=== PATIENT | female | born 1990 | race Caucasian/White ===

== ENCOUNTER 2020-06-17 13:08 | Outpatient (REF) | payer OTHER, SELFPAY ==
--- NOTE | 2020-06-17 13:13 | US_ITS ---
EXAMINATION: PELVIC ULTRASOUND CLINICAL INFORMATION: Excessive and frequent menstruation with irregular cycle COMPARISON: Previous CT scans of the abdomen and pelvis most recent January 2020 and pelvic ultrasound December 2016 TECHNIQUE: Transabdominal and transvaginal pelvic ultrasound was performed. Transvaginal exam was performed for better visualization of the uterus and ovaries. FINDINGS: The uterus is anteverted and measures 7.6 x 3.9 x 4.8 cm in dimension. No focal uterine lesion is seen. Endometrial thickness measures 0.3 cm. The ovaries are normal-appearing. The right ovary measures 2.9 x 1.5 x 1.9 cm and the left ovary measures 3.1 x 2.4 x 1.7 cm. There is no fluid in the pelvis. US/US transvaginal IMPRESSION: Unremarkable exam.
--- NOTE | 2020-06-17 13:13 | US_ITS ---
EXAMINATION: PELVIC ULTRASOUND CLINICAL INFORMATION: Excessive and frequent menstruation with irregular cycle COMPARISON: Previous CT scans of the abdomen and pelvis most recent January 2020 and pelvic ultrasound December 2016 TECHNIQUE: Transabdominal and transvaginal pelvic ultrasound was performed. Transvaginal exam was performed for better visualization of the uterus and ovaries. FINDINGS: The uterus is anteverted and measures 7.6 x 3.9 x 4.8 cm in dimension. No focal uterine lesion is seen. Endometrial thickness measures 0.3 cm. The ovaries are normal-appearing. The right ovary measures 2.9 x 1.5 x 1.9 cm and the left ovary measures 3.1 x 2.4 x 1.7 cm. There is no fluid in the pelvis. US/US pelvic complete IMPRESSION: Unremarkable exam.
== END 2020-06-17 13:09 | disposition home or self-care (01) ==
LOC: HO.US 13:08
PROVIDERS: Absent Provider Advanced Practice Midwife; Visit Provider Obstetrics & Gynecology
DX: R92.1 Mammographic calcification found on diagnostic imaging of breast (principal)
CPT/HCPCS: 76830; 76856

== ENCOUNTER 2020-08-13 15:12 | Outpatient (REF) | payer OTHER, SELFPAY ==
[2020-08-14 09:41] LABS: BV Int Neg Control Negative (Negative); BV Int Pos Control Positive (Positive)
[2020-08-15 11:28] LABS: C. trachomatis RNA TMA NOT DETECTED (NOT DETECTED); N. gonorrhoeae RNA TMA DETECTED (NOT DETECTED)
== END 2020-08-13 15:13 | disposition home or self-care (01) ==
LOC: HO.LNP 15:12
PROVIDERS: PCP Family Medicine; Visit Provider Obstetrics & Gynecology
DX: N92.1 Excessive and frequent menstruation with irregular cycle (principal); Z11.3 Encounter for screening for infections with a predominantly sexual mode of transmission
CPT/HCPCS: 87480; 87491; 87510; 87591; 87660; 99212

== ENCOUNTER → 2020-09-11 09:40 | Outpatient (BNVA) | payer OTHER, SELFPAY | PROVIDERS: PCP Internal Medicine; Visit Provider Obstetrics & Gynecology | DX: Z64.0 Problems related to unwanted pregnancy (principal); G89.18 Other acute postprocedural pain | CPT/HCPCS: 81025; 99212 ==

== ENCOUNTER → 2020-09-16 10:49 | Outpatient (BNVA) | payer OTHER, SELFPAY | PROVIDERS: PCP Internal Medicine; Visit Provider Advanced Practice Midwife | DX: A54.9 Gonococcal infection, unspecified (principal) | CPT/HCPCS: 96372; J0696 ==

== ENCOUNTER 2020-09-25 07:14 | Day surgery (SDC) | payer OTHER, SELFPAY ==
[2020-09-25 08:02] VITALS: BP 115/60; PULSE 75; RESP 18; TEMP 36.7; O2SAT 96; BMI 43.8
[2020-09-25] MEDS: Lactated Ringers 1,000 ML 50 ML IV (08:30)
[2020-09-25] MEDS: Albuterol Sulfate (0.083%) 2.5 MG/3 ML VIAL.NEB INHALE (09:12)
[2020-09-25 09:13] VITALS: PULSE 85; O2SAT 95
--- NOTE | 2020-09-25 09:27 | HO.ANESPROP2 ---
[facility] Active Problems Active Problems: All Active Problems (Updated 09/16/20 @ 11:50 by Jose Toure MD) Gonorrhea (Acute) Family planning (Acute) Screen for STD (sexually transmitted disease) (Acute) Potential exposure to STD (Acute) control counseling (Acute) Menometrorrhagia (Acute) Past Medical History Medical History Asthma Bipolar 1 disorder History of frequent headaches Polysubstance abuse PTSD (post-traumatic stress disorder) Schizophrenia Surgical History Surgical History History of appendectomy Social History Social History Alcohol intake: never Smoking Status: Current every day smoker Substance Use Type: Marijuana Advance Directives: No Advance Directives Information Provided: Yes Gender identity: female Meds Allergies Allergy/AdvReac Type Severity Reaction Status Date / Time Fish Containing Products Allergy Severe SWELLING Verified 09/25/20 08:12 haloperidol [Haldol] Allergy Severe rash Verified 09/25/20 08:12 From HALDOL Allergy Severe RASH Uncoded 09/11/20 10:01 paper tape/tape adhesive Allergy Severe rash Uncoded 09/25/20 08:12 SEASONAL ALLERGIES Allergy Intermediate ITCHY EYES Uncoded 09/25/20 08:12 Active Medications: Current Medications Generic Name Dose Route Start Last Admin Trade Name Freq PRN Reason Stop Dose Admin Lactated Ringer's 1,000 mls @ 50 mls/hr 09/25/20 09:00 09/25/20 08:30 Lr IV 50 mls/hr .Q20H REBECCA Administration Home Medications Medication Instructions Recorded Confirmed Last Taken Type quetiapine 150 mg tablet,extended 150 mg PO BEDTIME 05/07/20 Unknown History release 24 hr tramadol 300 mg capsule 24 300 mg PO DAILY 05/07/20 Unknown History hr,extended release trazodone 150 mg tablet 150 mg PO BEDTIME PRN 05/07/20 Unknown History Exam Exam Date and Time: September 25, [id number] Height,Weight and Vital Signs: Height 5 ft 7 in Weight 127.006 kg Last Vital Signs Temp 98.0 F 09/25/20 08:02 Pulse 85 09/25/20 09:13 Resp 18 09/25/20 08:02 BP 115/60 09/25/20 08:02 Pulse Ox 96 09/25/20 08:02 Airway Mallampati Class: II TM Dist: >3cm Neck ROM: Full Assessment and Plan Assessment Anesthesia Assessment: Anesthesia Plan Discussed and Chart Reviewed Final Anesthetic Review NPO: Yes ASA Class: II Final Preanesthetic Review: No Changes in Pt Med Stat, Meds/Allgs Chart Reviewed, Consent Obtained/Reviewed and Anes Risks/Benef Reviewed Patient Risk: Low Procedure Risk: Low Assessment/Block/Sedation in SS: Assess/Block/Sedation-SS Anesthetic Plan Anesthetic Plan: MAC: Disposition: Standard PACU
--- NOTE | 2020-09-25 10:01 | PC.NURSE ---
pt lungs wheezing noted bilat. informed dr chan. updraft ordered/received. pt campbell well. lungs clear bilat no wheezing heard at this time. sats 98% r/a. resp easy and reg. pt resting quietly. spoke with dr coleman pt unsure to have procedure done stated only having it because thats what the father wanted. attentive listening/ offered reassurance. dr coleman spoke with pt at the bedside.....ok with her decision to go forward.
--- NOTE | 2020-09-25 10:07 | MHC.SHP ---
Pre-Procedural Eval Section A The patient is an INPATIENT: No Changes since office visit: No Cold of Flu in the past 2 weeks, No New Medical Problems, No Changes in Medication and No Patient answered all questions The History & Physical has been completed within 30 days and I have reviewed it.: Yes Section B Chief Complaint: Unwanted Allergies: Allergies Allergy/AdvReac Type Severity Reaction Status Date / Time Fish Containing Products Allergy Severe SWELLING Verified 09/25/20 08:12 haloperidol [Haldol] Allergy Severe rash Verified 09/25/20 08:12 From HALDOL Allergy Severe RASH Uncoded 09/11/20 10:01 paper tape/tape adhesive Allergy Severe rash Uncoded 09/25/20 08:12 SEASONAL ALLERGIES Allergy Intermediate ITCHY EYES Uncoded 09/25/20 08:12 Plan I have reviewed the history and physical and performed a pertinent physical examination on my patient. No changes have occurred unless specified.
[2020-09-25 11:00] VITALS: BP 147/77; PULSE 85; RESP 16; TEMP 36.8; O2SAT 98
[2020-09-25] MEDS: Acetaminophen 325 MG TABLET 650 MG PO (11:12)
[2020-09-25] MEDS: oxyCODONE HCl Immed Release 5 MG TABLET PO (11:13)
[2020-09-25 11:14] VITALS: BP 128/58; PULSE 78; RESP 16; O2SAT 100
[2020-09-25 11:32] VITALS: BP 137/80; PULSE 74; RESP 18; O2SAT 100
--- NOTE | 2020-09-25 13:14 | P.OP_ITS ---
Operative Note Operative Note Date of Service: 09/25/20 Narrative: Surgeon: Kelly Fermin MD Ordnance Truck Installation Mechanic: none Preoperative Diagnosis: unwanted Postoperative Diagnosis: Unwanted Procedure performed: Suction dilation and curettage Anesthesia: IV sedation Findings: Normal appearing external genitalia, vagina, and cervix Specimen: products of conception Complications: none Disposition: PACU Ms. Hunt is a 29 year old with intrauterine at 9 0/7 we eks by sure LMP. She has had her previous children removed from her by DCF and reports that she does not want to go through that again and desires termination. Surgical Risks: The patient was informed of the risks and benefits of the procedure Risks included but were not limited to bleeding, infection, injury to the vulva, vagina, or cervix, and uterine perforation (with possible injury to intrapelvic organs and need for diagnostic laparoscopy or laparotomy). The patient expressed understanding of the risks involved, all questions were answered, and the patient consented to the procedure. The patient was taken to the operating room where a time out was performed to confirm correct patient and correct procedure. The patient was given preoperative antibiotics per ACOG guidelines (200mg doxycycline PO). Adequte IV sedation was established. The patient was then positioned on the operating table in the dorsal lithotomy position with the legs supported in stirrups. All pressure points were padded and a warm blanket was placed to maintain core body temperature. The patient was then prepped and draped in the usual sterile fashion.A straight catheter was inserted into the bladder and the bladder was emptied. A bimanual exam was performed and the uterus was found to be anteverted, approximately 9 week size. A bivalve speculum was inserted into the vagina and the cervix was visualized and grasped using the single tooth tenaculum. The uterus was was then adequately dilated using Tristan dilators for the introduction of the 10mm suction curette. The suction curette was advanced to the fundus and then suction was applied and the curette was rotated in a circular fashion as the curette was withdrawn. The suction was relieved at the internal os and the curette was again advanced to the fundus. This was repeated until no products were obtained. The suction curette was withdrawn and a sharp curette was advanced to the fundus. The uterus was curetted in a systematic manner covering all surfaces until a gritty texture was noted throughout. The suction curette was introduced one final time and the uterine cavity was cleared of any remaining products or curettings. The suction curette was then withdrawn and the single tooth tenaculum was removed from the anterior lip of the cervix. Good hemostasis was noted. The bivalve speculum was then removed from the vagina. At completion of the procedure, all needle, sponge, and instrument counts were noted to be correct x2. The patient tolerated the procedure well and was transferred to the recovery room in stable condition.
== END 2020-09-25 12:24 | disposition home or self-care (01) ==
PROVIDERS: PCP Internal Medicine; Visit Provider Obstetrics & Gynecology
PROC: (CPT 59841; principal; 2020-09-25 09:30)
DX: Z33.2 Encounter for elective termination of pregnancy (principal); Z64.0 Problems related to unwanted pregnancy; J45.909 Unspecified asthma, uncomplicated; F20.9 Schizophrenia, unspecified; F43.10 Post-traumatic stress disorder, unspecified; F19.90 Other psychoactive substance use, unspecified, uncomplicated; F17.210 Nicotine dependence, cigarettes, uncomplicated; Z79.899 Other long term (current) drug therapy; Z88.8 Allergy status to other drugs, medicaments and biological substances
CPT/HCPCS: 59841; 88304; 88305; 94640; J1885; J2250; J2405; J3010

== ENCOUNTER 2021-04-08 11:05 | Emergency (ER) | payer OTHER, SELFPAY ==
--- NOTE | ~2021-04-08 | XR_ITS ---
EXAMINATION: XR CHEST CLINICAL INFORMATION: Cough with wheezing COMPARISON: August 14, 2015 TECHNIQUE: AP portable view of the chest was obtained. FINDINGS: There is no evidence of acute parenchymal disease, pneumothorax, or pleural effusion. Heart normal size. No evidence of pulmonary edema. There is some scarring noted in the lower right lung. XR/XR chest 1V IMPRESSION: No acute parenchymal disease.
[2021-04-08 11:09] VITALS: BP 121/84; BP 141/83; PULSE 63; PULSE 65; RESP 23; TEMP 36.5; O2SAT 95; BMI 43.8
[2021-04-08 11:53] VITALS: PULSE 72; O2SAT 97
[2021-04-08] MEDS: Albuterol/Iprat 2.5/0.5MG 3 ML AMPUL.NEB INHALE (11:53)
[2021-04-08 11:55] LABS: MANUAL DIFF FLAG NO
[2021-04-08] MEDS: 0.9 % Sodium Chloride 1,000 ML 999 ML IV (11:56)
[2021-04-08] MEDS: Magnesium Sulfate/H2O 2 GM/50 ML PIGGYBACK IV (11:56)
[2021-04-08 12:01] LABS: INTERNATIONAL NORM RATIO 1.1 (0.9-1.1); Prothrombin Time 12.6 SEC (9.9-13.0)
[2021-04-08 12:04] VITALS: PULSE 68
[2021-04-08 12:04] LABS: Partial Thromboplastin Time 25.7 SEC (24.1-38.0)
[2021-04-08 12:05] VITALS: PULSE 68; RESP 23; O2SAT 95
--- NOTE | 2021-04-08 12:07 | PC.NURSE ---
patient a&ox3, iv inserted, labs drawn, covid swab obtained, vehicle monitor technician applied- sinus julius 60s, vitals stable, cxr performed, RT gave updraft per order, medicated per order, pt awaiting testing results, will continue to monitor.
--- NOTE | 2021-04-08 12:13 | ED_ITS ---
HPI - URI/Sore Throat General Chief Complaint: Upper Respiratory Symptoms Stated Complaint: FLU LIKE SX FOR DAYS, +COVID VACCINES Time Seen by Provider: 04/08/21 11:14 Source: patient Mode of arrival: ambulatory Limitations: no limitations History of Present Illness HPI Narrative: Patient presents to ED for coughing, body aches, wheezing, nausea, and vomiting, for the past week. Patient denies any recent long travel, swelling of legs, or pleuritic chest pain. MD elicited complaint: fever and cough Pertinent past history: asthma Related Data Home Medications Medication Instructions Recorded Confirmed quetiapine 150 mg tablet,extended 150 mg PO BEDTIME 05/07/20 02/16/21 release 24 hr (Seroquel XR) tramadol 300 mg capsule 24 300 mg PO DAILY 05/07/20 02/16/21 hr,extended release trazodone 150 mg tablet 150 mg PO BEDTIME PRN 05/07/20 02/16/21 Previous Rx's Medication Instructions Recorded medroxyprogesterone 150 mg/mL 150 mg IM [id number] Days #1 ml 08/13/20 intramuscular suspension (Depo-Provera) metronidazole 500 mg tablet 500 mg PO BID 7 Days #14 tab 08/17/20 (Flagyl) oxycodone 5 mg capsule 5 mg PO Q6H PRN #10 cap 09/24/20 albuterol sulfate 90 mcg/actuation 2 puff INHALATION Q4-6H PRN 30 04/08/21 aerosol inhaler Days #8.5 g benzonatate 100 mg capsule 100 mg PO TID PRN #21 cap 04/08/21 (Tessalon Perles) prednisone 20 mg tablet 40 mg PO DAILY 5 Days #10 tab 04/08/21 Allergies Allergy/AdvReac Type Severity Reaction Status Date / Time Fish Containing Products Allergy Severe SWELLING Verified 04/08/21 11:09 haloperidol [Haldol] Allergy Severe rash Verified 04/08/21 11:09 From HALDOL Allergy Severe RASH Uncoded 09/11/20 10:01 paper tape/tape adhesive Allergy Severe rash Uncoded 09/25/20 08:12 SEASONAL ALLERGIES Allergy Intermediate ITCHY EYES Uncoded 09/25/20 08:12 Review of Systems Review of Systems: Yes all other systems are reviewed and are negative Constitutional: Constitutional: Reports as per HPI, Reports no additional constitutional complaints, Reports body ache(s) and Reports chills ENT: Reports system reviewed and no additional complaints, except as documented and Reports as per HPI Cardiovascular: Cardiovascular: Reports as per HPI and Reports no additional cardiovascular complaints Respiratory: Respiratory: Reports as per HPI, Reports no additional respiratory complaints, Reports cough and Reports wheezing Gastrointestinal: Gastrointestinal: Reports as per HPI and Reports no additional gastrointestinal complaints Genitourinary: Genitourinary: Reports no additional female genitourinary complaints and Reports as per HPI Musculoskeletal: Musculoskeletal: Reports no additional musculoskeletal complaints and Reports as per HPI Integumentary/Breasts: Skin/Breast: Reports system reviewed and no additional complaints, except as docu and Reports as per HPI Neurologic: Reports system reviewed and no additional complaints, except as documented and Reports as per HPI Allergic/Immunologic: Allergic/Immunologic: Reports wheezing PMFSH Past Medical History Medical History Asthma Bipolar 1 disorder History of frequent headaches Polysubstance abuse PTSD (post-traumatic stress disorder) Schizophrenia Surgical History History of appendectomy Social History Social History Alcohol intake: never Patient Tobacco Use Status: Former Tobacco user Use of substances other than those prescribed or required for medical reasons: Yes Substance Use Type: Marijuana Substance Use Frequency: Daily Advance Directives: No Patient : No Gender identity: Female Physical Exam Vital Signs: Vital Signs: Last Vital Signs Temp 98.1 F 04/08/21 15:58 Pulse 65 04/08/21 15:58 Resp 20 04/08/21 15:58 BP 166/95 H 04/08/21 15:58 Pulse Ox 98 04/08/21 15:58 Body Mass Index 43.8 Const: General: cooperative, healthy appearing, comfortable, no acute distres s, well developed, alert and awake Orientation/consciousness: patient carlos ented x3 HENMT: Head: Yes normal to inspection, Yes No palpable skull fracture present, Yes normocephalic and Yes atraumatic Eyes: General: appearance normal, both eyes and all related structures Neck: Neck: Yes normal visual inspection, Yes full ROM, Yes no lymphadenopathy, Yes no meningeal signs, Yes trachea midline, Yes supple and No tender Chest: Chest palpation & inspection: normal inspection of the chest and normal palpation of entire chest wall Breast/axilla inspection: normal inspection of the breasts Resp: Effort & Inspection: normal respiratory effort and able to speak in complete sentences Auscultation: wheezes (auditory and in lungs) expiratory wheezes Cardio: Jugular venous distension: no JVD Heart sounds: S1 normal heart sound present and S2 normal heart sound present GI: Inspection: Yes normal to inspection and No abdominal wall ecchymosis Palpation (GI): Soft to palpation, not firm, nontender, no guarding and not rigid : General: No CVA tenderness and Yes no CVA tenderness Back/Spine/Pelvis: Back: no CVA tenderness, No CVA tenderness and No back tenderness Skin: General skin exam: no rashes or lesions noted and elasticity normal Neuro: General: patient oriented x3, gait normal, tone normal, no meningeal signs and CN's II-XI intact bilaterally Cranial nerves: Yes CN's II-XII intact bilaterally Extrem: Other: Lower extremity negative for any swelling, pitting edema, calf tenderness Psych: Appearance: grossly normal, well kempt and not disheveled Course Course Course Narrative: URI symptoms will do COVID swab/COVID labs. Chest x-ray ordered. Albuterol magnesium ordered. Reevaluation(s) Reevaluation #1: Patient chest x-ray negative for pneumonia. Patient received 2 rounds of albuterol with steroids and magnesium. COVID-19 SR skin back negative. Respiratory viral panel was added and showed patient was positive for COVID 0H3 which is not COVID-19 virus. Patient states she feels better and auditory wheezing resolved. O2 saturation on ambulation 95% Time: 16:06 MDM - URI/Sore Throat MDM Narrative Medical decision making narrative: Asthma exacerbation due to viral infection Lab Data Result diagrams: 04/08/21 11:46 04/08/21 11:46 Labs: Lab Results 04/08/21 04/08/21 04/08/21 Range/Units 11:46 11:46 11:46 WBC 5.6 (4.8-10.8) X10*3/uL RBC 4.30 (4.20-5.50) X10*6/uL Hgb 12.1 (12.0-16.0) g/dl Hct 36.3 L (37-47) % MCV 84.4 (80-98) fL MCH 28.1 (27.0-33.0) pg MCHC 33.3 (31.0-35.0) g/dl RDW 15.2 (11.0-16.0) % Plt Count 335 (160-400) X10*3/uL MPV 9.9 (9.4-12.3) fL Immature Gran % (Auto) 0.4 (0.0-0.4) % Neut % (Auto) 37.8 L (45-73) % Lymph % (Auto) 47.8 H (20-40) % Wright % (Auto) 10.4 (2-11) % Eos % (Auto) 3.2 (0-4) % Baso % (Auto) 0.4 (0-2) % Lymph # (Auto) 2.7 (1.2-4.9) X10*3/uL Wright # (Auto) 0.6 (0.1-1.2) X10*3/uL Eos # (Auto) 0.2 (0.0-0.4) X10*3/uL Baso # (Auto) 0.0 (0.0-0.2) X10*3/uL Abs Immat Gran (auto) 0.02 (0.00-0.03) X10*3/uL Absolute Neuts (auto) 2.1 (2.0-8.3) X10*3/uL Absolute Nucleated RBC 0.000 (0.0-0.012) X10*3/uL Nucleated RBC % (auto) 0.0 (0.0-0.2) /100WBC PT (9.9-13.0) SEC INR (0.9-1.1) APTT (24.1-38.0) SEC Sodium 141 (135-145) mmol/L Potassium 3.4 (3.3-5.1) mmol/L Chloride 108 (96-108) mmol/L Carbon Dioxide 25 (22-29) mmol/L Anion Gap 11 L (12-20) BUN 7 L (9-16) mg/dL Creatinine 0.94 (0.5-1.4) mg/dL Estim Creat Clear Calc 119.0 Estimated GFR > 60 Random Glucose 96 (60-115) mg/dL Lactic Acid 1.0 (0.5-2.0) mmol/L Calcium 9.4 (8.4-10.2) mg/dL Ferritin 30 (10-122) ng/mL Total Bilirubin 0.6 (0.0-1.0) mg/dL AST 18 (5-31) U/L ALT 15 (0-31) U/L Alkaline Phosphatase 83 (39-117) U/L Lactate Dehydrogenase 228 H (122-220) U/L Total Protein 7.5 (6.5-8.0) g/dL Albumin 4.4 (3.5-5.0) g/dL Procalcitonin ng/mL Respiratory Panel Coppola Adenovirus (Rapid PCR) (Not Detect.) B.pert (TEM-PCR) (Not Detect.) B.parapertussis DNA PCR (Not Detect.) C. pneumoniae DNA (PCR) (Not Detect.) Coronavirus (PCR) (Negative) Coronavirus OC43 (PCR) (Not Detect.) Coronavirus HKU1 (PCR) (Not Detect.) Coronavirus 229E (PCR) (Not Detect.) Coronavirus NL63 (PCR) (Not Detect.) Human Metapneumovir PCR (Not Detect.) Influenza A (RT-PCR) (Not Detect.) Influenza Type A (PCR) (Negative) Influenza B (RT-PCR) (Not Detect.) Influenza Type B (PCR) (Negative) M. pneumoniae (PCR) (Not Detect.) Parainfluenza 1 (PCR) (Not Detect.) Parainfluenza 2 (PCR) (Not Detect.) Parainfluenza 3 (PCR) (Not Detect.) Parainfluenza 4 (PCR) (Not Detect.) RSV (PCR) (Not Detect.) RSV RNA Qual (PCR) (Negative) Entero/Rhino (PCR) (Not Detect.) SARS-CoV-2 RNA (RT-PCR) (Not Detect.) 04/08/21 04/08/21 04/08/21 Range/Units 11:46 11:46 11:46 WBC (4.8-10.8) X10*3/uL RBC (4.20-5.50) X10*6/uL Hgb (12.0-16.0) g/dl Hct (37-47) % MCV (80-98) fL MCH (27.0-33.0) pg MCHC (31.0-35.0) g/dl RDW (11.0-16.0) % Plt Count (160-400) X10*3/uL MPV (9.4-12.3) fL Immature Gran % (Auto) (0.0-0.4) % Neut % (Auto) (45-73) % Lymph % (Auto) (20-40) % Wright % (Auto) (2-11) % Eos % (Auto) (0-4) % Baso % (Auto) (0-2) % Lymph # (Auto) (1.2-4.9) X10*3/uL Wright # (Auto) (0.1-1.2) X10*3/uL Eos # (Auto) (0.0-0.4) X10*3/uL Baso # (Auto) (0.0-0.2) X10*3/uL Abs Immat Gran (auto) (0.00-0.03) X10*3/uL Absolute Neuts (auto) (2.0-8.3) X10*3/uL Absolute Nucleated RBC (0.0-0.012) X10*3/uL Nucleated RBC % (auto) (0.0-0.2) /100WBC PT 12.6 (9.9-13.0) SEC INR 1.1 (0.9-1.1) APTT 25.7 (24.1-38.0) SEC Sodium (135-145) mmol/L Potassium (3.3-5.1) mmol/L Chloride (96-108) mmol/L Carbon Dioxide (22-29) mmol/L Anion Gap (12-20) BUN (9-16) mg/dL Creatinine (0.5-1.4) mg/dL Estim Creat Clear Calc Estimated GFR Random Glucose (60-115) mg/dL Lactic Acid (0.5-2.0) mmol/L Calcium (8.4-10.2) mg/dL Ferritin (10-122) ng/mL Total Bilirubin (0.0-1.0) mg/dL AST (5-31) U/L ALT (0-31) U/L Alkaline Phosphatase (39-117) U/L Lactate Dehydrogenase (122-220) U/L Total Protein (6.5-8.0) g/dL Albumin (3.5-5.0) g/dL Procalcitonin < 0.02 ng/mL Respiratory Panel [place] Adenovirus (Rapid PCR) (Not Detect.) B.pert (TEM-PCR) (Not Detect.) B.parapertussis DNA PCR (Not Detect.) C. pneumoniae DNA (PCR) (Not Detect.) Coronavirus (PCR) NEGATIVE (Negative) Coronavirus OC43 (PCR) (Not Detect.) Coronavirus HKU1 (PCR) (Not Detect.) Coronavirus 229E (PCR) (Not Detect.) Coronavirus NL63 (PCR) (Not Detect.) Human Metapneumovir PCR (Not Detect.) Influenza A (RT-PCR) (Not Detect.) Influenza Type A (PCR) NEGATIVE (Negative) Influenza B (RT-PCR) (Not Detect.) Influenza Type B (PCR) NEGATIVE (Negative) M. pneumoniae (PCR) (Not Detect.) Parainfluenza 1 (PCR) (Not Detect.) Parainfluenza 2 (PCR) (Not Detect.) Parainfluenza 3 (PCR) (Not Detect.) Parainfluenza 4 (PCR) (Not Detect.) RSV (PCR) (Not Detect.) RSV RNA Qual (PCR) NEGATIVE (Negative) Entero/Rhino (PCR) (Not Detect.) SARS-CoV-2 RNA (RT-PCR) (Not Detect.) 04/08/21 Range/Units 11:46 WBC (4.8-10.8) X10*3/uL RBC (4.20-5.50) X10*6/uL Hgb (12.0-16.0) g/dl Hct (37-47) % MCV (80-98) fL MCH (27.0-33.0) pg MCHC (31.0-35.0) g/dl RDW (11.0-16.0) % Plt Count (160-400) X10*3/uL MPV (9.4-12.3) fL Immature Gran % (Auto) (0.0-0.4) % Neut % (Auto) (45-73) % Lymph % (Auto) (20-40) % Wright % (Auto) (2-11) % Eos % (Auto) (0-4) % Baso % (Auto) (0-2) % Lymph # (Auto) (1.2-4.9) X10*3/uL Wright # (Auto) (0.1-1.2) X10*3/uL Eos # (Auto) (0.0-0.4) X10*3/uL Baso # (Auto) (0.0-0.2) X10*3/uL Abs Immat Gran (auto) (0.00-0.03) X10*3/uL Absolute Neuts (auto) (2.0-8.3) X10*3/uL Absolute Nucleated RBC (0.0-0.012) X10*3/uL Nucleated RBC % (auto) (0.0-0.2) /100WBC PT (9.9-13.0) SEC INR (0.9-1.1) APTT (24.1-38.0) SEC Sodium (135-145) mmol/L Potassium (3.3-5.1) mmol/L Chloride (96-108) mmol/L Carbon Dioxide (22-29) mmol/L Anion Gap (12-20) BUN (9-16) mg/dL Creatinine (0.5-1.4) mg/dL Estim Creat Clear Calc Estimated GFR Random Glucose (60-115) mg/dL Lactic Acid (0.5-2.0) mmol/L Calcium (8.4-10.2) mg/dL Ferritin (10-122) ng/mL Total Bilirubin (0.0-1.0) mg/dL AST (5-31) U/L ALT (0-31) U/L Alkaline Phosphatase (39-117) U/L Lactate Dehydrogenase (122-220) U/L Total Protein (6.5-8.0) g/dL Albumin (3.5-5.0) g/dL Procalcitonin ng/mL Respiratory Panel Coppola See Note Adenovirus (Rapid PCR) Not Detected (Not Detect.) B.pert (TEM-PCR) Not Detected (Not Detect.) B.parapertussis DNA PCR Not Detected (Not Detect.) C. pneumoniae DNA (PCR) Not Detected (Not Detect.) Coronavirus (PCR) (Negative) Coronavirus OC43 (PCR) Detected A (Not Detect.) Coronavirus HKU1 (PCR) Not Detected (Not Detect.) Coronavirus 229E (PCR) Not Detected (Not Detect.) Coronavirus NL63 (PCR) Not Detected (Not Detect.) Human Metapneumovir PCR Not Detected (Not Detect.) Influenza A (RT-PCR) Not Detected (Not Detect.) Influenza Type A (PCR) (Negative) Influenza B (RT-PCR) Not Detected (Not Detect.) Influenza Type B (PCR) (Negative) M. pneumoniae (PCR) Not Detected (Not Detect.) Parainfluenza 1 (PCR) Not Detected (Not Detect.) Parainfluenza 2 (PCR) Not Detected (Not Detect.) Parainfluenza 3 (PCR) Not Detected (Not Detect.) Parainfluenza 4 (PCR) Not Detected (Not Detect.) RSV (PCR) Not Detected (Not Detect.) RSV RNA Qual (PCR) (Negative) Entero/Rhino (PCR) Not Detected (Not Detect.) SARS-CoV-2 RNA (RT-PCR) Not Detected (Not Detect.) Discharge Plan Discharge Clinical Impression: Asthma attack Patient Disposition: Home, Self-Care Instructions: Asthma (ED) Additional Instructions: You will be discharged with prednisone albuterol inhaler, and cough medication. Return to the ED immediately for any chest pain, shortness of breath, swelling of lower extremities, coughing up blood, weakness, dizziness, chest pain on inspiration, or any other concerning symptoms. Please follow up with PCP Prescriptions: New prednisone 20 mg tablet 40 mg PO DAILY 5 Days Qty: 10 RF: 0 benzonatate [Tessalon Perles] 100 mg capsule 100 mg PO TID PRN (Reason: cough) Qty: 21 RF: 0 albuterol sulfate 90 mcg/actuation HFA aerosol inhaler 2 puff inhalation Q4-6H PRN (Reason: asthma) 30 Days Qty: 8.5 RF: 0 No Action metronidazole [Flagyl] 500 mg tablet 500 mg PO BID 7 Days Qty: 14 RF: 0 oxycodone 5 mg capsule 5 mg PO Q6H PRN (Reason: pain) Qty: 10 RF: 0 medroxyprogesterone [Depo-Provera] 150 mg/mL suspension 150 mg IM [id number] 90 Days Qty: 1 RF: 0 tramadol 300 mg capsule,ER biphase 24 hr 17-83 300 mg PO DAILY RF: 0 trazodone 150 mg tablet 150 mg PO BEDTIME PRNRF: 0 quetiapine [Seroquel XR] 150 mg tablet extended release 24 hr 150 mg PO BEDTIME RF: 0 Interventions: ED Discharge Assessment Last Done: 04/08/21 16:31 Discharge Date/Time: 04/08/21 16:31 Print Language: Nepali
[2021-04-08 12:16] LABS: Basophils Percent Auto 0.4 % (0-2); Eosinophils Absolute Auto 0.2 X10*3/uL (0.0-0.4); Eosinophils Percent Auto 3.2 % (0-4); Hematocrit 36.3 % (37-47); Hemoglobin 12.1 g/dl (12.0-16.0); Imm Gran Abs Auto 0.02 X10*3/uL (0.00-0.03); Imm Gran Pct Auto 0.4 % (0.0-0.4); Lymphocytes Absolute Auto 2.7 X10*3/uL (1.2-4.9); Lymphocytes Percent Auto 47.8 % (20-40); Mean Corpuscular HGB Conc 33.3 g/dl (31.0-35.0); Mean Corpuscular Hemoglobin 28.1 pg (27.0-33.0); Mean Corpuscular Volume 84.4 fL (80-98); Mean Platelet Volume 9.9 fL (9.4-12.3); Monocytes Absolute Auto 0.6 X10*3/uL (0.1-1.2); Monocytes Percent Auto 10.4 % (2-11); Neutrophils Absolute Auto 2.1 X10*3/uL (2.0-8.3); Neutrophils Percent Auto 37.8 % (45-73); Platelet Count 335 X10*3/uL (160-400); Red Cell Distribution Width 15.2 % (11.0-16.0); White Blood Count 5.6 X10*3/uL (4.8-10.8)
[2021-04-08 12:19] LABS: Alanine Aminotransferase 15 U/L (0-31); Albumin Level 4.4 g/dL (3.5-5.0); Alkaline Phosphatase 83 U/L (39-117); Anion Gap 11 (12-20); Aspartate Amino Transferase 18 U/L (5-31); Bilirubin Total 0.6 mg/dL (0.0-1.0); Blood Urea Nitrogen 7 mg/dL (9-16); Calcium 9.4 mg/dL (8.4-10.2); Carbon Dioxide 25 mmol/L (22-29); Chloride 108 mmol/L (96-108); Estimated Glomerular Filt Rate > 60; Glucose Random 96 mg/dL (60-115); Lactate Dehydrogenase 228 U/L (122-220); Potassium 3.4 mmol/L (3.3-5.1); Sodium 141 mmol/L (135-145); Total Protein 7.5 g/dL (6.5-8.0)
[2021-04-08 12:39] LABS: Ferritin 30 ng/mL (10-122)
[2021-04-08 12:43] LABS: Procalcitonin < 0.02 ng/mL
[2021-04-08 12:44] LABS: Adenovirus PCR Not Detected (Not Detect.); Bordetella parapertussis PCR Not Detected (Not Detect.); Bordetella pertussis PCR Not Detected (Not Detect.); Chlamydia pneumoniae PCR Not Detected (Not Detect.); Coronavirus 229E PCR Not Detected (Not Detect.); Coronavirus HKU1 PCR Not Detected (Not Detect.); Coronavirus NL63 PCR Not Detected (Not Detect.); Human metapneumovirus PCR Not Detected (Not Detect.); Influenza A PCR Not Detected (Not Detect.); Influenza B PCR Not Detected (Not Detect.); Mycoplasma pneumoniae PCR Not Detected (Not Detect.); Parainfluenza 1 PCR Not Detected (Not Detect.); Parainfluenza 2 PCR Not Detected (Not Detect.); Parainfluenza 3 PCR Not Detected (Not Detect.); Parainfluenza 4 PCR Not Detected (Not Detect.); RSV PCR Not Detected (Not Detect.); Rhino/Enterovirus PCR Not Detected (Not Detect.); SARS-CoV-2 PCR Not Detected (Not Detect.)
[2021-04-08 12:46] LABS: Influenza A PCR NEGATIVE (Negative); Influenza B PCR NEGATIVE (Negative); Resp Syncy Virus RNA Qual PCR NEGATIVE (Negative); SARS COV2 PCR INHOUSE NEGATIVE (Negative)
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
[2021-04-08] MEDS: methylPREDNISolone Sod Succ 125 MG/2 ML VIAL IVPUSH (13:55)
[2021-04-08 13:56] VITALS: BP 132/69; PULSE 62; RESP 18; TEMP 36.8; O2SAT 95
[2021-04-08 14:02] LABS: Coronavirus OC43 PCR Detected (Not Detect.)
--- NOTE | 2021-04-08 15:04 | PC.NURSE ---
patient ambulated to the bathroom, upon returning patients o2 sat was 93%, after sitting back down o2 sat increased to 95%.
[2021-04-08 15:58] VITALS: BP 166/95; PULSE 65; RESP 20; TEMP 36.7; O2SAT 98
== END 2021-04-08 16:31 | disposition home or self-care (01) ==
PROVIDERS: Physician Assistant; Emergency Provider Emergency Medicine; PCP Internal Medicine
DX: J45.909 Unspecified asthma, uncomplicated (principal); R05 Cough; M79.10 Myalgia, unspecified site; F12.90 Cannabis use, unspecified, uncomplicated; Z79.899 Other long term (current) drug therapy; Z87.891 Personal history of nicotine dependence; Z20.822 Contact with and (suspected) exposure to COVID-19
CPT/HCPCS: 0241U; 36415; 71045; 80053; 82728; 83605; 83615; 84145; 85025; 85610; 85730; 87040; 87077; 87186; 87205; 87633; 94640; 96361; 96365; 96366; 96375; 99284; 99285; J2930; J3475